=== PATIENT | female | born 1995 | race American Indian/Alaskan Native ===

== ENCOUNTER 2018-03-23 15:34 | Emergency (ER) | payer OTHER, MEDICAID ==
[2018-03-23 15:56] VITALS: BP 124/70
[2018-03-23] MEDS ORDERED: IBUPROFEN PO ONE (17:25)
--- NOTE | 2018-03-23 18:07 | XRay Report ---
FINAL REPORT EXAM: XR FOOT 3+V LT HISTORY: foot pain TECHNIQUE: Frontal, lateral, oblique views left foot Comparison: None FINDINGS: There is no evidence of fracture, subluxation, lytic or blastic change or periosteal reaction. The joint spaces are maintained. The soft tissues are unremarkable. IMPRESSION: 1. No plain film evidence of bony or soft tissue abnormality. If the patient remains symptomatic, MRI may be helpful.
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
== END 2018-03-23 18:46 | disposition home or self-care (01) ==
LOC: ED 15:34
DX: S13.4XXA Sprain of ligaments of cervical spine, initial encounter (principal); S96.912A Strain of unspecified muscle and tendon at ankle and foot level, left foot, initial encounter; V89.2XXA Person injured in unspecified motor-vehicle accident, traffic, initial encounter; Y93.89 Activity, other specified; Y92.488 Other paved roadways as the place of occurrence of the external cause; Y99.8 Other external cause status
CPT/HCPCS: 72125; 99283